=== PATIENT | female | born 1955 | race Caucasian/White ===

== ENCOUNTER 2024-01-01 18:47 | Emergency (ER) | payer OTHER, SELFPAY ==
[2024-01-01 18:55] VITALS: BP 148/90
[2024-01-01 19:09] LABS: % Basophils 0.8 % (0-2); % Eosinophils 3.4 % (0-6); % Immature Granulocytes 2.1 % (0-0.5); % Lymphocytes 34.8 % (20.5-51.1); % Monocytes 10.9 % (1.7-9.3); Absolute Basophils 0.1 10^3/uL (0-0.2); Absolute Eosinophils 0.2 10^3/uL (0-0.7); Absolute Immature Granulocytes 0.2 10^3/uL (0-0.05); Absolute Lymphocytes 2.5 10^3/uL (1.2-3.4); Absolute Monocytes 0.8 10^3/uL (0.1-0.6); Absolute Neutrophils 3.4 10^3/uL (1.4-6.5); Hematocrit 42.9 % (37.0-47.0); Hemoglobin 15.2 g/dL (12.0-16.0); Mean Corp Hgb Conc. 35.4 g/dL (33.0-37.0); Mean Corpuscular Hgb 33.6 pg (27.0-31.0); Mean Corpuscular Volume 94.7 fL (81.0-99.0); Mean Platelet Volume 10.1 fL (7.4-10.4); Nucleated Red Blood Cells % 0 %; Platelet Count 218 10^3/uL (130-400); Red Blood Cell Count 4.53 10^6/uL (4.20-5.40); Red Cell Dist. Width 12.3 % (11.5-14.5); White Blood Cell Count 7.1 10^3/uL (4.8-10.8)
--- NOTE | 2024-01-01 19:09 | ED.GENMED ---
History of Present Illness
<Abbey Powell PA-C - Last Filed: 01/01/24 23:22>
General
Chief Complaint: Cardiac Symptoms
Source: patient
Time Seen by Provider: 01/01/24 20:58
History of Present Illness
History of Present Illness:
68yoF with a history of hyperlipidemia and GERD presenting for evaluation of chest pain. Patient reports intermittent chest pain for the past 4 days. She describes a sharp pain in her chest that radiates throughout her back. Pain seems to occur
after eating a large meal or after laying flat. Symptoms last about 30 minutes before resolving. She thought her symptoms were related to indigestion so she has been taking Maalox with some improvement. Of note, patient returned from [facility] today
and had an 8 [address] plane ride. She called her PCP today and she was told to go to the ED for evaluation. She has no symptoms currently. She denies any fevers, chills, cough, nausea, vomiting, shortness of breath, calf pain.
Past History
<Thiago Loyola DO - Last Filed: >
Past History
ED Past Medical History: Other (GERD, status post cholecystectomy)
Social History
Tobacco: Former smoker
Alcohol: Occasional
Phy Exam
<Abbey Powell PA-C - Last Filed: 01/01/24 23:22>
General Physical Exam
General Presentation: well appearing and no apparent distress
General age: appears stated age
General Skin: warm and dry
General Habitus: normal
General Mental: alert
Cardiovascular Exam
Cardiovascular Exam: regular rate/rhythm, no edema and no murmur
Pulmonary Exam
Pulmonary Exam: lungs clear, no respiratory distress, no crackles and no wheezing
Gastrointestinal Exam
Gastrointestinal Exam: non tender, soft and non distended
Neurological Exam
Neurological Exam: alert
Skin Exam
Skin Exam: normal color and warm/dry
Psychiatric Exam
Psychiatric Exam: normal mood/affect
Course
<Abbey Powell PA-C - Last Filed: 01/01/24 23:22>
Orders/Labs/Results
Orders:
Orders
01/01/24 18:58
ECG [Electrocardiogram (*1)] Urgent
Reason for Study: Chest Pain
CR Chest - 2 Views Urgent
Comment:
Reason For Exam: chest pain
01/01/24 18:59
EKG- Treatment ONCE
01/01/24 19:04
Complete Blood Count/With Diff Urgent
Comprehensive Metabolic Panel Urgent
Troponin I Urgent
01/01/24 21:21
D-Dimer Urgent
Abnormal Lab Results
01/01/24
19:04
MCH 33.6 H pg
(27.0-31.0)
Abs Immat Gran (auto) 0.2 H 10^3/uL
(0-0.05)
Absolute Monos (auto) 0.8 H 10^3/uL
(0.1-0.6)
Immature Gran % 2.1 H %
(0-0.5)
Monocytes % 10.9 H %
(1.7-9.3)
Chloride 108 H mmol/L
(98-107)
Carbon Dioxide 20 L mmol/L
(22-30)
Glucose 106 H mg/dl
(70-99)
AST 50 H U/L
(14-36)
01/01/24 19:04
01/01/24 19:04
Vital Signs
Initial and Last Documented VS:
Initial Vital Signs
Temp Pulse Resp BP Pulse Ox
98.3 F 77 20 148/90 96
01/01/24 18:55 01/01/24 18:55 01/01/24 18:55 01/01/24 18:55 01/01/24 18:55
Last Documented Vital Signs
Temp Pulse Resp BP Pulse Ox
98.3 F 69 21 152/87 95
01/01/24 18:55 01/01/24 21:45 01/01/24 21:45 01/01/24 21:01 01/01/24 21:45
<Thiago Loyola, DO - Last Filed: >
Orders/Labs/Results
Orders:
Orders
01/01/24 18:58
ECG [Electrocardiogram (*1)] Urgent
Reason for Study: Chest Pain
CR Chest - 2 Views Urgent
Comment:
Reason For Exam: chest pain
01/01/24 18:59
EKG- Treatment ONCE
01/01/24 19:04
Complete Blood Count/With Diff Urgent
Comprehensive Metabolic Panel Urgent
Troponin I Urgent
01/01/24 21:21
D-Dimer Urgent
Abnormal Lab Results
01/01/24
19:04
MCH 33.6 H pg
(27.0-31.0)
Abs Immat Gran (auto) 0.2 H 10^3/uL
(0-0.05)
Absolute Monos (auto) 0.8 H 10^3/uL
(0.1-0.6)
Immature Gran % 2.1 H %
(0-0.5)
Monocytes % 10.9 H %
(1.7-9.3)
Chloride 108 H mmol/L
(98-107)
Carbon Dioxide 20 L mmol/L
(22-30)
Glucose 106 H mg/dl
(70-99)
AST 50 H U/L
(14-36)
01/01/24 19:04
01/01/24 19:04
Vital Signs
Initial and Last Documented VS:
Initial Vital Signs
Temp Pulse Resp BP Pulse Ox
98.3 F 77 20 148/90 96
01/01/24 18:55 01/01/24 18:55 01/01/24 18:55 01/01/24 18:55 01/01/24 18:55
Last Documented Vital Signs
Temp Pulse Resp BP Pulse Ox
98.3 F 69 21 152/87 95
01/01/24 18:55 01/01/24 21:45 01/01/24 21:45 01/01/24 21:01 01/01/24 21:45
<Abbey Powell PA-C - Last Filed: 01/01/24 23:22>
MDM/Problems Addressed
Differential Diagnosis Includes:
68yoF here with intermittent chest pain x 4 days. Worse after eating large meals or laying flat. Radiates to back. Improves with Maalox. Returned from [place] earlier today. She is afebrile and hemodynamically stable. She is well appearing in no
distress. Exam is reassuring. Differential diagnosis includes but is not limited to: GERD, esophagitis, pericarditis, ACS, PE, doubt aortic dissection
Initial ED plan: Check cardiac labs, D-dimer, EKG, and CXR.
<Abbey Powell PA-C - Last Filed: 01/01/24 23:22>
*EKG
Interpreted by ED Provider?: Yes
EKG Intrepretation Date: 01/01/24
Heart Rate: 67
Rate: normal
Rhythm: sinus
[place]: normal axis
Interval: normal interval
QRS Pattern: normal QRS
Ischemia: no ischemia
*Critical Care Note
Total Time (30-74mins, 75-104mins- exclusive of procedures): Not Applicable
<Abbey Powell PA-C - Last Filed: 01/01/24 23:22>
Update Note
Update Note:
Labs overall unremarkable. EKG shows NSR without ischemic changes and troponin WNL. D-dimer normal making PE very unlikely. CXR is clear. No indication for admission. Advised f/u with PCP and ED return precautions discussed. She was discharged in
stable condition.
ED Attending Note
<Thiago Loyola DO - Last Filed: >
-
Portions of this chart may have been created with voice recognition software.� Occasional wrong word or��sound alike� substitutions may have occurred due to the inherent limitations of voice recognition software.
Discharge Plan
Departure
Patient Disposition: Home (Routine Discharge)
Date of Disposition: 01/01/24
Time of Disposition: 21:58
Patient with high blood pressure during this ER visit?: Yes
Discharge Problem:
Chest pain
Instructions: Chest Pain (DC)
Referrals:
Nahomy Connor DO [Family Provider] -
Activity Restrictions/Additional Instructions:
Please follow-up with your family doctor. Return to the ER with any new or worsening symptoms.
Interventions
Interventions:
*Risk Screen - Suicide Last Done: 01/01/24 18:55
*General Assessment Last Done: 01/01/24 18:55
*Neglect/Abuse Screening Last Done: 01/01/24 18:55
ED- Fall Risk Assessment Last Done: 01/01/24 22:18
*ED COVID-19 Vaccine History Last Done: 01/01/24 22:18
*Nursing Disposition Last Done: 01/01/24 22:18
ED- Pulmonary Assessment Last Done: 01/01/24 22:18
ED- Cardiac Assessment Last Done: 01/01/24 22:18
Discharge Date and Time
Discharge Date/Time: 01/01/24 22:19
Print Language: FRENCH
[2024-01-01 19:29] LABS: ALT (SGPT) 33 U/L (0-35); AST (SGOT) 50 U/L (14-36); Albumin 4.5 g/dl (3.5-5.0); Alkaline Phosphatase 110 U/L (38-126); Blood Urea Nitrogen 16 mg/dl (7-17); Calcium 9.5 mg/dl (8.4-10.2); Carbon Dioxide 20 mmol/L (22-30); Chloride 108 mmol/L (98-107); Glucose 106 mg/dl (70-99); Potassium 4.4 mmol/L (3.5-5.1); Sodium 141 mmol/L (135-145); Total Bilirubin 0.7 mg/dl (0.2-1.3); Total Protein 7.1 g/dl (6.3-8.2); eGFR > 60.00
[2024-01-01 19:36] LABS: Troponin I < 0.012 ng/ml
[2024-01-01 20:41] VITALS: BP 139/83
[2024-01-01 21:01] VITALS: BP 152/87
== END 2024-01-01 22:19 | disposition home or self-care (01) ==
LOC: EMR 18:47
PROVIDERS: Physician Assistant; EMERGENCY PHYSICIAN Emergency Medicine; FAMILY PHYSICIAN Family Medicine
DX: R07.89 Other chest pain (principal); E78.00 Pure hypercholesterolemia, unspecified; K21.9 Gastro-esophageal reflux disease without esophagitis; Z87.891 Personal history of nicotine dependence; Z90.49 Acquired absence of other specified parts of digestive tract
CPT/HCPCS: 99283; 71046; 80053; 84484; 85025; 85379; 93005